=== PATIENT | female | born 1960 | race Caucasian/White ===

== ENCOUNTER 2016-11-14 07:59 | Day surgery (SDC) | payer OTHER ==
[~2016-11-14] VITALS: Ht 157.5 cm; Wt 53.4 kg
[2016-11-14] VITALS (12 sets, daily range): BP systolic 110–157; BP diastolic 58–88; PULSE 60–78; RESP 14–19; Ht 157.5 cm; Wt 53.4 kg
[2016-11-14 09:19] LABS: BASOPHILS % 0.3 % (0.0-2.0); EOSINOPHILS # 0.4 10^3/ul (0.0-0.5); EOSINOPHILS % 8.3 % (0.0-7.0); HEMATOCRIT 34.2 % (37.0-47.0); HEMOGLOBIN 11.3 g/dl (12.0-16.0); LYMPHOCYTES # 1.9 10^3/ul (0.8-2.9); LYMPHOCYTES % 43.5 % (15.0-51.0); MEAN CORPUSCULAR HEMOGLOBIN 28.9 pg (29.0-33.0); MEAN CORPUSCULAR HGB CONC 33.1 g/dl (32.0-37.0); MEAN CORPUSCULAR VOLUME 87.1 fl (82.0-101.0); MEAN PLATELET VOLUME 8.4 fl (7.4-10.4); MONOCYTE # 0.2 10^3/ul (0.3-0.9); MONOCYTES % 5.8 % (0.0-11.0); NEUTROPHIL # 1.8 10^3/ul (1.6-7.5); NEUTROPHILS % 42.1 % (39.0-77.0); PLATELET COUNT 266 10^3/UL (140-440); RED BLOOD COUNT 3.93 10^6/ul (4.20-5.40); RED CELL DISTRIBUTION WIDTH 18.6 % (11.5-14.5); UNCORRECTED WBC 4.3 10^3/ul (4.8-10.8); WHITE BLOOD COUNT 4.3 10^3/ul (4.8-10.8)
[2016-11-14] MEDS ORDERED: MET25 PO (09:24)
[2016-11-14] MEDS ORDERED: ETAN50PE SQ (09:24)
[2016-11-14] MEDS ORDERED: [UNRECOGNIZED DRUG - CODE] PO (09:24)
[2016-11-14 09:26] LABS: CONDITION 1; LH ANALYZER COMMENTS 1
--- NOTE | 2016-11-14 09:27 | RADRPT ---
PROCEDURE: XR Chest. CLINICAL INDICATION: Preoperative TECHNIQUE: Single frontal view of the chest was obtained COMPARISON: None FINDINGS: The heart and mediastinum are within normal limits. There is a questionable 6 mm nodular opacity in the left mid lung, in the region of the anterior fou rth rib. There is no pleural effusion or pneumothorax. RPTAT: AA IMPRESSION: Questionable 6 mm left mid lung nodular opacity, may also be related to the end of the rib. Further evaluation with CT chest is recommended. .Greg Cueto MD, MD Date Time Electronically viewed and signed by .Greg Cueto MD, on 11/14/2016 09:27 .S/
[2016-11-14 09:30] LABS: ALBUMIN 3.7 g/dl (3.3-4.9)
[2016-11-14 09:32] LABS: INR 0.98
[2016-11-14 09:33] LABS: ALBUMIN/GLOBULIN RATIO 0.97; BILIRUBIN,INDIRECT 0.1 mg/dl (0-1.1); BILIRUBIN,TOTAL 0.1 mg/dl (0.2-1.3); TOTAL PROTEIN 7.5 g/dl (6.1-8.1)
[2016-11-14 09:45] LABS: CALCIUM 8.9 mg/dl (8.4-10.2); CREATININE 0.55 mg/dl (0.44-1.00); POTASSIUM 4.2 mmol/L (3.5-5.1)
[2016-11-14] MEDS ORDERED: BUPIVACAINE 0.25%/EPI (SDV) 30 ML INJ ONE (09:57)
[2016-11-14] MEDS ORDERED: LIDOCAINE 1% (MPF) 30 ML INJ ONE (09:57)
[2016-11-14] MEDS ORDERED: LACTATED RINGER'S 1,000 ML IV* ONE (10:00)
[2016-11-14] MEDS ORDERED: CEFAZOLIN 2 GM/50 ML (PMX) 50 ML IVPB ONE (10:00)
[2016-11-14] MEDS ORDERED: MIDAZOLAM 1 MG/ML 2 ML INJ ONE (10:08)
[2016-11-14] MEDS ORDERED: FENTAnyl 50 MCG/ML VIAL ONE (10:09)
[2016-11-14] MEDS ORDERED: PROPOFOL 20 ML ONE (11:29)
[2016-11-14] MEDS ORDERED: LIDOCAINE 2% (SDV) 5 ML INJ ONE (11:29)
[2016-11-14] MEDS ORDERED: ROCURONIUM 50 MG INJ ONE (11:29)
[2016-11-14] MEDS ORDERED: CEFAZOLIN 1 GM INJ ONE (11:29)
[2016-11-14] MEDS ORDERED: ONDANSETRON 4 MG INJ ONE (11:29)
[2016-11-14] MEDS ORDERED: LACTATED RINGER'S 1,000 ML IV SCH ×2 (11:57)
[2016-11-14] MEDS ORDERED: HYDROCODONE/APAP (5/325) TAB PO PRN ×2 (12:00)
[2016-11-14] MEDS ORDERED: morphine 2 MG INJ IV PRN (12:00)
[2016-11-14] MEDS ORDERED: ONDANSETRON 4 MG INJ IV PRN (12:00)
--- NOTE | 2016-11-14 16:22 | RADRPT ---
Vent Rate: 57 bpm RR Interval: 0 msec MI Interval: 164 msec QRS Duration: 94 msec QT Interval: 422 msec QTC Interval: 410 msec P-R-T [place]: 59 - 54 - 49 degrees Sinus bradycardia Otherwise normal ECG Electronically Signed By: Osbaldo King [id number]
--- NOTE | 2016-11-17 06:37 | OPR ---
DATE OF OPERATION: 11/14/2016 DATE OF OPERATION: 11/14/2016 SURGEON: Aba Glaser MD MANDARIN TUTOR: None. ANESTHESIA: General and local. ANESTHESIOLOGIST: Dr. Louis. PREOPERATIVE DIAGNOSIS: Subcutaneous masses, left elbow and left forearm ( possibly rheumatoid nodules). POSTOPERATIVE DIAGNOSES: Subcutaneous masses, left elbow and left forearm ( possibly rheumatoid nodules), pending pathology. OPERATION PERFORMED 1. Excision of 2 masses from elbow, extensor surface. 2. Excision of 1 mass from left upper forearm extensor surface. ESTIMATED BLOOD LOSS: 2 mL. SPECIMEN: Specimen was sent for pathologic evaluation. INDICATION: This is a 56-year-old female who presented to my office complaining of pain over the left elbow and presence of some masses and the mass actually has been bothering her. When the elbow hits against some objects and she states that she has rheumatoid arthritis and she has been told that these are rheumatoid nodules. On examination, there were 2 subcutaneous nodules over the extensor surface of the elbow, is regular and also about 10 cm below that, there was another nodule subcutaneously over the dorsal aspect of the left forearm. Discussed with the patient the alternatives of treatment, the risks and benefits of operation, possible complications, including damage to the structures in the vicinity, damage to the elbow joint, possible bleeding, possible infection, possible recurrence of the nodules and she understood. She wanted the operation to be done and she signed a consent and proceed with operation today. PROCEDURE: The patient was brought to the operating room, placed on operating table in supine position. Anesthesia was induced by the anesthesiologist. Antibiotic was given IV. Time-out was prep and drape with Betadine was done. Patient positioned from supine position changed to right down decubitus and the left upper extremity was elevated over 2 pillows. The Betadine and draped in a sterile fashion was done. Time-out was called. Patient was identified, site of operation and location of the operation and pathology was identified, discussed among the team. Concerns were discussed and the procedure started. All through the operation, a mixture of 30 mL of 1% lidocaine with 30 mL of 0.25 % Marcaine with epinephrine was used for local anesthesia. After adequate exposure was obtained in the extended arm position. The anesthetic fluid was injected all around the elbow area and also the upper forearm subcutaneous tissue and below the masses as much as possible. First, an incision was made longitudinally over the upper part of the forearm, carried down to subcutaneous tissue and then local flaps were raised and under then under the nodule and from the surrounding tissue using electrocautery and then excised completely, sent for pathologic evaluation. Wound irrigated and closed in 2 layers, deep layer with 3-0 Vicryl 14 interrupted sutures were placed, and the skin was closed with #3-0 Prolene continuous running fashion. Then, attention was paid toward the elbow. A longitudinal incision about 4 to 5 cm was made posterior aspect of the elbow and actually there was not that much of the subcutaneous tissues so the skin flap was developed, and I went around the nodules. There were 2 separate nodules. They were attached to the capsule of the joint. Meticulously they were from the capsule of the joint and eventually using electrocautery and sharp knife, these nodules were and sent for pathologic evaluation. Thorough examination revealed there was slight pieces of firm tissue resembling those nodules that was left here and there. This were meticulously from the skin and were sent for pathologic evaluation with all the others. After thorough examination, there did not appear to be any more firm tissue which resembling the rheumatoid nodule to be left in the area. Wound was thoroughly irrigated, closed in 2 layers, deep layer with 3-0 Vicryl interrupted sutures, 4 of them, and the skin was closed with #3-0 Prolene continuous running fashion. At the end Steri- Strip was applied over the edge of the wound and bulky dressing applied and Kerlix was wrapped around the elbow and the upper part of the forearm. Patient tolerated procedure well. Sponge, needle, and instrument counts reported correct x2. Specimen was sent to 2 separate containers. Patient was extubated , transferred to recovery room in stable condition. Dictated By: ABA AVALOS/CRISTHIAN Conf#: [id number] DID#: [id number]
== END 2016-11-14 13:31 | disposition home or self-care (01) ==
LOC: SDS 07:59
DX: M06.321 Rheumatoid nodule, right elbow (principal); M06.332 Rheumatoid nodule, left wrist
CPT/HCPCS: 11406; 12031; 71010; 80053; 85025; 85610; 85730; 88307; 93005; J0690; J2250; J2405; J3010; Z7512; Z7610